=== PATIENT | male | born 1970 | race Caucasian/White ===

== ENCOUNTER 2022-06-26 10:54 | Emergency (ER) | payer OTHER ==
[2022-06-26 12:19] LABS: BASOPHIL 0.6 % (0-2); EOSINOPHIL 1.1 % (0-5); HCT 39.8 % (42.0-52.0); HGB 13.4 g/dl (13.2-18.0); LYMPHOCYTE 16.1 % (15-48); MCH 32.1 pg (25.0-31.0); MCHC 33.7 g/dL (32.0-36.0); MCV 95.2 fL (78.0-100.0); MONOCYTE 9.4 % (0-12); MPV 9.1 fL (6.0-9.5); NEUTROPHIL 72.4 % (41-80); NRBC 0; PLT 240 K/uL (150-400); RBC 4.18 M/uL (4.70-6.00); RDW 12.4 % (11.5-14.0); WBC 12.4 K/uL (4.0-10.5)
[2022-06-26 12:52] LABS: ALBUMIN 3.6 g/dL (3.4-5.0); ALKALINE PHOSHATASE 128 U/L (46-116); ALT 37 U/L (16-63); AST 25 U/L (15-37); BILIRUBIN - TOTAL 0.5 mg/dL (0.2-1.0); BUN 10 mg/dL (7-18); BUN/CREAT RATIO (CALC) 13.2 RATIO; CHLORIDE 103 mmol/L (98-107); CO2 (BICARBONATE) 28 mmol/L (21-32); CREATININE 0.76 mg/dL (0.67-1.17); GLOBULIN (CALCULATION) 3.8 g/dL; GLUCOSE 120 mg/dL (74-106); POTASSIUM 3.2 mmol/L (3.5-5.1); TOTAL PROTEIN 7.4 g/dL (6.4-8.2)
[2022-06-26 13:16] LABS: URIC ACID 6.8 mg/dL (3.5-7.2)
[2022-06-26] MEDS ORDERED: NORCO 5-325 TA1 EACH PO ×2 (14:32→14:36)
[2022-06-26] MEDS ORDERED: BACTRIM DS TAB1 EACH PO ×2 (14:32→14:36)
== END 2022-06-26 15:23 | disposition home or self-care (01) ==
LOC: FER 10:54
PROVIDERS: Emergency Medicine
DX: L03.115 Cellulitis of right lower limb (principal); F17.210 Nicotine dependence, cigarettes, uncomplicated; Z88.0 Allergy status to penicillin; Z28.310 Unvaccinated for COVID-19
CPT/HCPCS: 36415; 73610; 73630; 80053; 83605; 84550; 85025; 85379; 93971; G0480; J0696; J2270; J2930; J7030; Q0162